=== PATIENT | female | born 2000 | race Caucasian/White ===

== ENCOUNTER 2023-07-02 12:29 | Outpatient (CLI) | payer OTHER ==
--- NOTE | 2023-07-02 14:42 | Ultrasound Report ---
PROCEDURE: Pelvic w/Transvaginal INDICATIONS: AUB TECHNIQUE: Real-time scanning was performed of the pelvic organs, with image documentation. Additional endovagi nal scanning was necessary due to incomplete visualization of the adnexal and endometrial structures by transabdominal scanning. COMPARISON: None. FINDINGS: Uterus: Uterus is anteverted and normal in size at 9 x 4 x 5.5 cm. The myometrium is homogeneous. The endometrium measures 6 mm in combined thickness. Ovaries: The right ovary measures 3.1 x 2.2 x 2.2 cm, with a calculated ovarian volume of 7.7 cc. T he left ovary measures 2.8 x 1.6 x 1.7 cm, with a calculated ovarian volume of 4.1 cc. The ovaries h ave a normal sonographic appearance. Less than 12 follicles can be seen in each ovary. No adnexal m asses are seen. No cystic lesions measuring greater than 3 cm. Other: No pathologic free abdominal or pelvic fluid. IMPRESSION: Unremarkable pelvic ultrasound. Reviewed by: Santos Hardin MD on 07/02/2023 1:41 PM [place] Approved by: Santos Hardin MD on 07/02/2023 1:41 PM [place] Station ID: [id number]
== END 2023-07-02 12:30 | disposition home or self-care (01) ==
LOC: DI 12:29
PROVIDERS: ATTEND Obstetrics & Gynecology
DX: N93.9 Abnormal uterine and vaginal bleeding, unspecified (principal); Z79.818 Long term (current) use of other agents affecting estrogen receptors and estrogen levels